=== PATIENT | male | born 1975 | race African-American/Black ===

== ENCOUNTER 2022-01-13 21:07 | Emergency (ER) | payer BC, OTHER ==
[2022-01-14 00:17] LABS: BLOOD UREA NITROGEN,BUN 13 mg/dL (7.0-18.0); CARBON DIOXIDE,CO2 26.8 mmol/L (21.0-32.0); CHLORIDE,CL 104 mmol/L (98-107); GLUCOSE RANDOM 96 mg/dL (74-106); LIPASE 122 U/L (73-393); POTASSIUM,K 3.9 mmol/L (3.5-5.1); SODIUM,NA 138 mmol/L (136-148)
[2022-01-14 00:23] LABS: C. TRACHOMATIS BY PCR NOT DETECTED; N. GONORRHOEAE BY PCR NOT DETECTED
== END 2022-01-14 00:54 | disposition home or self-care (01) ==
LOC: MW.ED 21:07
DX: D64.9 Anemia, unspecified (principal); E80.7 Disorder of bilirubin metabolism, unspecified
CPT/HCPCS: 36415; 80053; 81001; 83690; 85025; 87491; 87591; 99283; 99284